=== PATIENT | male | born 1980 | race Caucasian/White ===

== ENCOUNTER → 2017-05-27 | Outpatient (CLI) | payer OTHER ==
[~2017-05-27] MED LIST: IOHEXOL 300 MG/ML 75 ML VIAL. IV ONE
--- NOTE | 2017-05-28 09:36 | RAD ---
CT neck with contrast 05/27/2017 Clinical indication: Enlarging mass adjacent to the left auricle. 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 Comparison: None. Technique: Multiple CT images of the neck obtained following uneventful intravenous administration of 75 mL Omnipaque 300. Coronal and sagittal reformations were obtained. PQRS Compliance Statement: One or more of the following individualized dose reduction techniques were utilized for this examination: 1. Automated exposure control 2. Adjustment of the mA and/or kV according to patient size 3. Use of iterative reconstruction technique Findings: Neck: There is a mixed solid and cystic oval mass in the left parotid space involving the superficial and deep lobes of the left parotid measuring 3.3 cm TV x 2.4 cm AP x 3.5 cm CC (series 3/image 29, series 4/image 31). There are multiple mildly prominent bilateral cervical lymph nodes without pathologic enlargement by CT size criteria. Visualized globes, orbits and intracranial structures are within normal limits. Nasal cavity, nasopharynx, oral cavity, oropharynx, hypopharynx and larynx are normal in appearance. Thyroid, right parotid, and bilateral submental glands are within normal limits. No destructive osseous lesions. The visualized lung apices are clear. Impression: 1. Mixed cystic and solid left parotid mass, measuring up to 3.5 cm, indeterminate between benign and malignant etiologies. Mass is amenable to percutaneous biopsy, if clinically indicated. 2. Mildly prominent bilateral cervical lymph nodes without pathologic enlargement by CT size criteria.
== END | disposition home or self-care (01) ==
LOC: CT 15:47
PROVIDERS: ATTEND Physician Assistant
DX: C07 Malignant neoplasm of parotid gland (principal); I10 Essential (primary) hypertension
CPT/HCPCS: 70491; Q9967

== ENCOUNTER 2019-02-18 13:11 | Emergency (ER) | payer OTHER ==
[~2019-02-18] VITALS: Ht 180.3 cm; Wt 136.1 kg
--- NOTE | 2019-02-18 13:29 | PHYS DOC ---
Past History Past Medical History: No Pertinent History Past Surgical History: No Surgical History Smoking: Non-smoker Drug Use: None Adult General HPI HPI Patient is a 39-year-old male presents with cough and shortness of breath. This has been present for the past 6 days. It has been getting worse over time. Worse with exertion which leaves him winded just walking in from the low waiting room. Denies any fever. Deep breaths seem to make him cough. No recent travel. No leg swelling. No specific chest pain or palpitations. Patient denies smoking, denies drug use. Family history is significant for mother having had blood clots, patient is unsure whether or legs or lungs, and she had to "get shots in her belly for this."[] Review of Systems Review of Systems Constitutional: Denies fever or chills [] Eyes: Denies change in visual acuity, redness, or eye pain [] HENT: Denies nasal congestion or sore throat [] Respiratory: See history of present illness[] Cardiovascular: No additional information not addressed in HPI [] GI: Denies abdominal pain, nausea, vomiting, bloody stools or diarrhea [] : Denies dysuria or hematuria [] Musculoskeletal: Denies back pain or joint pain [] Integument: Denies rash or skin lesions [] Neurologic: Denies headache, focal weakness or sensory changes [] Endocrine: Denies polyuria or polydipsia [] All other systems were reviewed and found to be within normal limits, except as documented in this note. Allergies Allergies Allergies Coded Allergies Type Severity Reaction Last Updated Verified No Known Drug Allergies 05/27/17 No Physical Exam Physical Exam Constitutional: Well developed, well nourished, no acute distress, non-toxic appearance. [] HENT: Normocephalic, atraumatic, bilateral external ears normal, oropharynx moist, no oral exudates, nose normal. [] Eyes: PERRLA, EOMI, conjunctiva normal, no discharge. [] Neck: Normal range of motion, no tenderness, supple, no stridor. [] Cardiovascular:Heart rate is tachycardic with a regular rhythm, no murmur [] Lungs & Thorax: Bilateral breath sounds clear to auscultation [] Abdomen: Bowel sounds normal, soft, no tenderness, no masses, no pulsatile masses. [] Skin: Warm, dry, no erythema, no rash. [] Back: No tenderness, no CVA tenderness. [] Extremities: No tenderness, no cyanosis, no clubbing, ROM intact, no edema. [] Neurologic: Alert and oriented X 3, normal motor function, normal sensory function, no focal deficits noted. [] Psychologic: Affect normal, judgement normal, mood normal. [] EKG EKG EKG shows a sinus tachycardia at 115 bpm, normal axis, QTC of 461 ms, no ST elevations, interpreted by me at 1324[] Radiology/Procedures Radiology/Procedures CTA OF THE CHEST WITH AND WITHOUT CONTRAST Clinical indications: Shortness of air. Tachycardia. Technique: Noncontrast axial localizer was performed. After IV infusion of 100 cc of Omnipaque 350, helical CT scanning of the chest was performed using the CT pulmonary embolism protocol. A coronal MIP reconstruction was generated. PQRS compliance Statement One or more of the following individualized dose reduction techniques were utilized for this study: 1. Automated exposure control 2. Adjustment of the mA and/or kV according to patient size 3. Use of iterative reconstruction technique Comparison: None available. Findings: Large bilateral pulmonary emboli are seen. These are located within the main pulmonary arteries at the level of the bifurcation within the hilum. No saddle embolism is seen within the main pulmonary trunk. No focal aneurysmal dilatation or dissection of the thoracic aorta is seen. The heart size is normal and no pericardial effusion is evident. No right ventricular strain is evident. No enlarged thoracic lymphadenopathy is evident. No pleural effusion or pneumothorax is seen. Groundglass lung infiltrates are seen bilaterally most likely due to atelectasis. No lung consolidation with air bronchograms or lung mass is seen. No adrenal mass is seen. Radiopaque gallstone is seen within the gallbladder. No lytic process is evident. IMPRESSION: Large bilateral pulmonary emboli are evident. No right ventricular strain is evident. Note-this critical result was called to the emergency room at 2:15 PM on February 18, 2019. Cholelithiasis.[] Course & Med Decision Making Course & Med Decision Making Pertinent Labs and Imaging studies reviewed. (See chart for details) ED course: Patient arrived, was placed in bed, and tolerated exam well. He was given breathing treatment which did not alter his vital signs nor breath sounds. He was transported to and from [place] with any complications. After the return of the CT findings, consultation was made with his primary care physician who who felt that with the elevated troponin and elevated BNP that the patient would be better served by a facility with more resources so the hospitalist at [facility] was contacted for admission. Patient was started on heparin protocol. Patient and his were informed of the findings, and all questions were answered. Patient was admitted in improved condition. Medical decision making: Patient appears to have bilateral PE with evidence of right heart strain. He is being admitted for further evaluation and treatment.[] Dragon Disclaimer Dragon Disclaimer This electronic medical record was generated, in whole or in part, using a voice recognition dictation system. Departure Departure: Impression: Primary Impression: Pulmonary embolism Disposition: 05 TRANSFER OTHER Condition: IMPROVED Referrals: JULIA FRIEND MD (PCP) Problem Qualifiers Primary Impression: Pulmonary embolism Pulmonary embolism type: unspecified Chronicity: acute Acute cor pulmonale presence: with acute cor pulmonale Qualified Codes: I26.09 - Other pulmonary embolism with acute cor pulmonale NALLELY CARVAJAL DO Feb 18, 2019 13:29
[2019-02-18] MEDS ORDERED: IPRATRPIUM/ALBUTEROL 0.5/2.5MG 3 ML NEBU. NEB ONE (13:30)
[2019-02-18] MEDS ORDERED: IOHEXOL 350 MG/ML 100 ML VIAL. IV ONE (13:30)
[2019-02-18 13:41] LABS: BASO # 0.1 x10^3/uL (0.0-0.2); BASO % 1 % (0-3); EOS # 0.1 x10^3/uL (0.0-0.7); EOS % 1 % (0-3); HEMATOCRIT 43.9 % (39.0-53.0); LYMPH # 2.2 x10^3/uL (1.0-4.8); LYMPH % 21 % (24-48); MEAN CORPUSCULAR HEMOGLOBIN 28 pg (25-35); MEAN CORPUSCULAR HGB CONC 34 g/dL (31-37); MEAN CORPUSCULAR VOLUME 83 fL (79-100); MONO # 0.9 x10^3/uL (0.0-1.1); MONO % 9 % (0-9); NEUT # 7.1 x10^3uL (1.8-7.7); NEUT % 68 % (31-73); PLATELET COUNT 281 x10^3/uL (140-400); WHITE BLOOD COUNT 10.4 x10^3/uL (4.0-11.0)
--- NOTE | 2019-02-18 14:21 | RAD ---
CTA OF THE CHEST WITH AND WITHOUT CONTRAST Clinical indications: Shortness of air. Tachycardia. Technique: Noncontrast axial localizer was performed. After IV infusion of 100 cc of Omnipaque 350, helical CT scanning of the chest was performed using the CT pulmonary embolism protocol. A coronal MIP reconstruction was generated. PQRS compliance Statement One or more of the following individualized dose reduction techniques were utilized for this study: 1. Automated exposure control 2. Adjustment of the mA and/or kV according to patient size 3. Use of iterative reconstruction technique Comparison: None available. Findings: Large bilateral pulmonary emboli are seen. These are located within the main pulmonary arteries at the level of the bifurcation within the hilum. No saddle embolism is seen within the main pulmonary trunk. No focal aneurysmal dilatation or dissection of the thoracic aorta is seen. The heart size is normal and no pericardial effusion is evident. No right ventricular strain is evident. No enlarged thoracic lymphadenopathy is evident. No pleural effusion or pneumothorax is seen. Groundglass lung infiltrates are seen bilaterally most likely due to atelectasis. No lung consolidation with air bronchograms or lung mass is seen. No adrenal mass is seen. Radiopaque gallstone is seen within the gallbladder. No lytic process is evident. IMPRESSION: Large bilateral pulmonary emboli are evident. No right ventricular strain is evident. Note-this critical result was called to the emergency room at 2:15 PM on February 18, 2019. Cholelithiasis. Electronically signed by: Binh Ley MD (02/18/2019 2:18 PM) [id number]
--- NOTE | 2019-02-18 14:21 | EKG ---
[address] [address] Test Date: 2019-02-18 Test Time: 13:22:36 Pat Name: YOBANY HO Department: Room: Gender: M Dean Of Education: EMILY : 1980 Requested By: NALLELY CARVAJAL Order Number: [id number] Reading MD: Honorio Sagastume Measurements Intervals [place] Rate: 115 P: 20 IA: 150 QRS: 44 QRSD: 86 T: 34 QT: 332 QTc: 461 Interpretive Statements SINUS TACHYCARDIA OTHERWISE NORMAL ECG RI6.01 No previous ECG available for comparison Electronically Signed On 02-25-2019 11:39:50 CDT by Honorio Sagastuem
[2019-02-18 14:28] LABS: ALBUMIN 3.7 g/dL (3.4-5.0); ALBUMIN/GLOBULIN RATIO 0.9 (1.0-1.7); CALCIUM 8.8 mg/dL (8.5-10.1); CREATININE 1.3 mg/dL (0.7-1.3); GFR 60.8; POTASSIUM 3.8 mmol/L (3.5-5.1); TOTAL BILIRUBIN 0.5 mg/dL (0.2-1.0); TOTAL PROTEIN 7.8 g/dL (6.4-8.2)
[2019-02-18] MEDS ORDERED: HEPARIN 25,000UTS/500ML PREMIX 500 ML IV PRN (14:45)
[2019-02-18] MEDS ORDERED: HEPARIN for IV BOLUS 10,000 UNIT/10 ML VIAL. IV PRN ×2 (14:45)
[2019-02-18] MEDS ORDERED: HEPARIN for IV BOLUS 10,000 UNIT/10 ML VIAL. IV ONE (14:45)
[2019-02-18 16:35] VITALS: BP 134/88
== END 2019-02-18 18:15 | disposition short-term general hospital (02) ==
LOC: ER 13:11
DX: I26.09 Other pulmonary embolism with acute cor pulmonale (principal)
CPT/HCPCS: 36415; 71275; 80053; 83880; 84484; 85025; 85610; 85730; 93005; 94640; 96365; 96366; 96376; 99285; J1644; J7620; Q9967

== ENCOUNTER 2019-03-06 15:12 | Emergency (ER) | payer OTHER ==
[~2019-03-06] VITALS: Ht 180.3 cm; Wt 137.9 kg
[2019-03-06 15:15] VITALS: BP 161/96
--- NOTE | 2019-03-06 15:42 | PHYS DOC ---
Past History Past Medical History: No Pertinent History Past Surgical History: No Surgical History Smoking: Non-smoker Alcohol Use: None Drug Use: None Adult General Chief Complaint Chief Complaint: ABNORMAL LABS HPI HPI 39-year-old male who was recently started on Coumadin approximately 2 weeks ago, secondary to bilateral pulmonary emboli. He had his INR checked today and it was greater than 10. Patient denies any bleeding at all. He denies any pain at this time. He denies any significant shortness of breath. He states he is taking Coumadin 10 mg every day.[] Review of Systems Review of Systems Constitutional: Denies fever or chills [] Eyes: Denies change in visual acuity, redness, or eye pain [] HENT: Denies nasal congestion or sore throat [] Respiratory: Some dyspnea on exertion but it's improved[] Cardiovascular: No additional information not addressed in HPI [] GI: Denies abdominal pain, nausea, vomiting, bloody stools or diarrhea [] : Denies dysuria or hematuria [] Musculoskeletal: Denies back pain or joint pain [] Integument: Denies rash or skin lesions [] Neurologic: Denies headache, focal weakness or sensory changes [] Endocrine: Denies polyuria or polydipsia [] All other systems were reviewed and found to be within normal limits, except as documented in this note. Current Medications Current Medications Current Medications Medications (Trade) Dose Ordered Sig/[place] Start Time Stop Time Status Last Admin Dose Admin Phytonadione (Vitamin K) 10 mg 1X ONCE 03/06/19 16:00 03/06/19 16:01 Allergies Allergies Allergies Coded Allergies Type Severity Reaction Last Updated Verified No Known Drug Allergies 05/27/17 No Physical Exam Physical Exam Constitutional: Well developed, well nourished, no acute distress, non-toxic appearance. [] HENT: Normocephalic, atraumatic, bilateral external ears normal, oropharynx moist, no oral exudates, nose normal. [] Eyes: PERRLA, EOMI, conjunctiva normal, no discharge. [] Neck: Normal range of motion, no tenderness, supple, no stridor. [] Cardiovascular:Heart rate regular rhythm, no murmur [] Lungs & Thorax: Bilateral breath sounds clear to auscultation [] Abdomen: Bowel sounds normal, soft, no tenderness, no masses, no pulsatile masses. [] Skin: Warm, dry, no erythema, no rash. [] Back: No tenderness, no CVA tenderness. [] Extremities: No tenderness, no cyanosis, no clubbing, ROM intact, no edema. [] Neurologic: Alert and oriented X 3, normal motor function, normal sensory function, no focal deficits noted. [] Psychologic: Anxious. [] Current Patient Data Vital Signs Vital Signs Date Time Temp Pulse Resp B/P (MAP) Pulse Ox O2 Delivery O2 Flow Rate FiO2 03/06/19 15:15 98.4 94 22 95 Room Air EKG EKG [] Radiology/Procedures Radiology/Procedures [] Course & Med Decision Making Course & Med Decision Making Pertinent Labs and Imaging studies reviewed. (See chart for details) [ED course: Evaluation reveals a 39-year-old male on Coumadin with an INR greater than 10. He has no active bleeding. I will give him a small dose of subcutaneous vitamin K. I will have him hold his Coumadin over the weekend and follow back with his primary care physician on Saturday for an INR recheck. Subsequent doses of vitamin K can be given if he remains elevated. I did ask him about being on L Wiss or per ALEKSEY that he stated that this was too expensive for him and would prefer to stay on Coumadin.] Dragon Disclaimer Dragon Disclaimer This electronic medical record was generated, in whole or in part, using a voice recognition dictation system. Departure Departure: Impression: Primary Impression: Supratherapeutic INR Disposition: 01 HOME, SELF-CARE Condition: STABLE Referrals: JULIA FRIEND MD (PCP) Patient Instructions: Prothrombin Time, International Normalized Ratio Additional Instructions: Hold your Coumadin over the weekend. Follow back up with Dr. Douglas's office on Saturday to have your Coumadin level rechecked. If you begin to bleed anywhere return to the emergency department for further evaluation. ALEN HIGH DO March 06, 2019 15:42
[2019-03-06] MEDS: PHYTONADIONE 10 MG/ML AMPUL. SQ ONE (15:51)
[2019-03-06] MEDS ORDERED: PHYTONADIONE 10 MG/ML AMPUL. SQ ONE (16:00)
== END 2019-03-06 16:00 | disposition home or self-care (01) ==
LOC: ER 15:12
DX: R79.1 Abnormal coagulation profile (principal); Z79.01 Long term (current) use of anticoagulants
CPT/HCPCS: 96372; 99283; J3430

== ENCOUNTER → 2019-03-09 | Outpatient (CLI) | payer OTHER ==
[2019-03-06 15:15] VITALS: BP 161/96
== END | disposition home or self-care (01) ==
LOC: LAB 13:21
PROVIDERS: ATTEND Family Medicine
DX: I26.99 Other pulmonary embolism without acute cor pulmonale (principal)
CPT/HCPCS: 36415; 85610

== ENCOUNTER → 2019-03-16 | Outpatient (CLI) | payer OTHER ==
[2019-03-06 15:15] VITALS: BP 161/96
== END | disposition home or self-care (01) ==
LOC: LAB 11:10
PROVIDERS: ATTEND Family Medicine
DX: I26.99 Other pulmonary embolism without acute cor pulmonale (principal)
CPT/HCPCS: 36415; 85610